=== PATIENT | male | born 1940 | race Caucasian/White ===

== ENCOUNTER 2021-02-02 17:48 | Inpatient (IN) ==
[2021-02-02] MEDS ORDERED: *HR* Metoprolol 5 MG/5 ML VIAL IVP ONE ×2 (22:38→22:46)
[2021-02-02] MEDS ORDERED: Naloxone 0.4 MG/ML INJ IVP PRN (22:42)
[2021-02-02] MEDS ORDERED: *HR* Promethazine 25 MG/ML VIAL IM PRN (22:46)
[2021-02-02] MEDS ORDERED: *HR* HYDROcodone/Acet 5/325 mg TABLET PO PRN (22:46)
[2021-02-02] MEDS ORDERED: Acetaminophen 325 MG TABLET PO PRN (22:46)
[2021-02-02] MEDS ORDERED: *HR* OxyCODONE Immed Rel 5 MG TABLET PO PRN (22:46)
[2021-02-02] MEDS ORDERED: Ondansetron 4 MG/2 ML VIAL IVP PRN (22:46)
[2021-02-02] MEDS ORDERED: *HR* Heparin 5,000 UNIT/ML VIAL IVP PRN (22:54)
[2021-02-02] MEDS ORDERED: Heparin 25,000UNIT/250ML 1/2NS 25,000 UNIT/250 ML IV.SOLN IVC SCH (23:00)
[2021-02-02] MEDS: Heparin 25,000 UNIT/250 ML 25,000 UNIT/250 ML IV.SOLN IVC SCH (23:29)
[2021-02-02] MEDS ORDERED: *HR* LORazepam 2 MG/ML VIAL IVP ONE (23:54)
[2021-02-03] MEDS ORDERED: Haloperidol Lactate 5 MG/ML VIAL IVP ONE (00:28)
[2021-02-03] MEDS ORDERED: Ipratropium/Albuterol Neb 3 ML IH PRN (01:18)
[2021-02-03 01:58] LABS: Basophils % 0.2 %; Hematocrit 35.2 % (37.5-50.1); Hemoglobin 10.3 g/dL (12.9-16.9); Immature Granulocytes % 0.5 % (0-4); Lymphocytes # 0.4 K/mcL (0.6-4.6); Lymphocytes % 3.1 %; Mean Corpuscular HGB Conc 29.3 g/dL (31.6-35.5); Mean Corpuscular Hemoglobin 30.3 pg (28.0-33.3); Mean Corpuscular Volume 103.5 fL (83.0-100.0); Mean Platelet Volume 11.5 fL (9.4-12.4); Monocytes # 0.2 K/mcL (0.0-1.3); Monocytes % 1.7 %; Neutrophils # 12.1 K/mcL (1.6-8.9); Platelet Count 226 K/mcL (140-400); Red Cell Distribution Width 15.2 % (11.5-14.5); Segmented Neutrophils % 94.5 %; White Blood Count 12.8 K/mcL (4.3-11.1)
[2021-02-03 02:03] LABS: Heparin anti-factor XA UFH 0.22 IU/mL (0.30-0.70)
[2021-02-03 02:04] LABS: INR 1.2; Prothrombin Time 13.3 Seconds (9.4-12.1)
[2021-02-03 02:16] LABS: Alanine Aminotransferase 13 Units/L (7-52); Albumin 3.3 g/dL (3.5-5.7); Albumin/Globulin Ratio 1.3 (1.1-2.2); Alkaline Phosphatase 56 Units/L (34-104); Aspartate Amino Transferase 17 Units/L (13-39); BUN/Creatinine Ratio 31 (6-26); Bilirubin,Total 0.4 mg/dL (0.3-1.0); Blood Urea Nitrogen 28 mg/dL (8-23); Calcium 8.2 mg/dL (8.6-10.3); Carbon Dioxide 29 mEq/L (23-29); Chloride 110 mEq/L (98-107); Chol/HDL Ratio 3.8 (0-4.9); Cholesterol 124 mg/dL (< 200); Globulin 2.5 g/dL (2.4-3.5); Glucose 149 mg/dL (70-105); HDL Cholesterol 33 mg/dL (40-59); LDL Cholesterol,Calculated 76 mg/dL (< 100); Magnesium 2.2 mg/dL (1.6-2.6); Osmolality,Calculated 304 (280-300); Sodium 143 mEq/L (136-145); Total Protein 5.8 g/dL (6.4-8.9); Triglycerides 73 mg/dL (< 150); eGFR For African Americans > 60 (> 60); eGFR For Non-African Americans > 60 (> 60)
[2021-02-03 02:28] LABS: VBG HCO3 31 mEq/L (21-27); VBG PCO2 89 mmHg (41-51); VBG PH 7.15 pH Units (7.32-7.42); VBG PO2 209 mmHg (25-50)
[2021-02-03] MEDS: Azithromycin 500 MG in 0.9 % Sodium Chloride 250 ML IVPB SCH (03:39)
[2021-02-03] MEDS: MethylPREDNISolone 40 MG/ML VIAL IVP SCH ×2 (08:54→16:03)
[2021-02-03] MEDS: Cefepime HCl 1,000 MG in Water for inj. (sterile) 10 ML IVP SCH ×2 (08:54→16:03)
[2021-02-03] MEDS ORDERED: Perflutren Lipid Microsphere 1.3 ML in 0.9 % Sodium Chloride 8.7 ML IVP PRN (09:53)
[2021-02-03] MEDS: *HR* Metoprolol 5 MG/5 ML VIAL IVP SCH ×2 (12:16→17:57)
[2021-02-03 16:18] LABS: ABG Base Excess 1 mEq/L (-2 to 3); ABG HCO3 31 mEq/L (21-27); ABG Oxygen Saturation 93 % (95-98); ABG PCO2 77 mmHg (35-45); ABG PH 7.21 pH Units (7.32-7.45); ABG PO2 82 mmHg (85-104); ABG TCO2 33 mEq/L (20-26); Blood Gas Modality avaps; Blood Gas VT 500 cc
[2021-02-03] MEDS: Heparin 25,000 UNIT/250 ML 25,000 UNIT/250 ML IV.SOLN IVC SCH (17:58)
[2021-02-03] MEDS: Ipratropium/Albuterol Neb 3 ML IH SCH ×2 (20:13→23:39)
[2021-02-04] MEDS: *HR* Metoprolol 5 MG/5 ML VIAL IVP SCH ×5 (00:40→23:13)
[2021-02-04] MEDS: MethylPREDNISolone 40 MG/ML VIAL IVP SCH ×4 (00:41→23:13)
[2021-02-04] MEDS: Cefepime HCl 1,000 MG in Water for inj. (sterile) 10 ML IVP SCH ×2 (00:41→09:33)
[2021-02-04] MEDS: Azithromycin 500 MG in 0.9 % Sodium Chloride 250 ML IVPB SCH (02:57)
[2021-02-04] MEDS: Ipratropium/Albuterol Neb 3 ML IH SCH ×6 (04:20→23:52)
[2021-02-04] MEDS ORDERED: Ringers Solution, Lactated 500 ML IVC ONE (05:00)
[2021-02-04] MEDS ORDERED: Haloperidol Lactate 5 MG/ML VIAL IVP ONE (05:40)
[2021-02-04 05:53] LABS: VBG HCO3 31 mEq/L (21-27); VBG PCO2 74 mmHg (41-51); VBG PH 7.23 pH Units (7.32-7.42); VBG PO2 50 mmHg (25-50)
[2021-02-04 05:54] LABS: Basophils % 0.1 %
[2021-02-04 05:56] LABS: Hemoglobin 9.9 g/dL (12.9-16.9); Immature Granulocytes % 0.7 % (0-4); Lymphocytes # 0.9 K/mcL (0.6-4.6); Lymphocytes % 6.6 %; Mean Corpuscular HGB Conc 29.1 g/dL (31.6-35.5); Mean Corpuscular Hemoglobin 29.8 pg (28.0-33.3); Mean Corpuscular Volume 102.4 fL (83.0-100.0); Mean Platelet Volume 11.5 fL (9.4-12.4); Monocytes # 0.5 K/mcL (0.0-1.3); Monocytes % 3.7 %; Neutrophils # 12.2 K/mcL (1.6-8.9); Platelet Count 232 K/mcL (140-400); Red Blood Count 3.32 M/mcL (4.19-5.50); Red Cell Distribution Width 15.1 % (11.5-14.5); Segmented Neutrophils % 88.9 %; White Blood Count 13.7 K/mcL (4.3-11.1)
[2021-02-04 07:02] LABS: Calcium 8.7 mg/dL (8.6-10.3)
[2021-02-04] MEDS ORDERED: 0.9 % Sodium Chloride 1,000 ML IVC SCH (07:45)
[2021-02-04] MEDS ORDERED: D5% in 0.45% NACL 1,000 ML IVC SCH (14:15)
[2021-02-04] MEDS ORDERED: D5% in Water 1,000 ML IVC PRN (14:41)
[2021-02-04] MEDS ORDERED: *HR* Dextrose 50 % in Water (Syg) 50 ML SYRINGE IVP PRN (14:41)
[2021-02-04] MEDS ORDERED: Dextrose Gel 15 GM/37.5 ML TUBE PO PRN ×2 (14:41)
[2021-02-04] MEDS ORDERED: *HR* OxyCODONE Immed Rel 5 MG TABLET PO PRN (14:44)
[2021-02-04] MEDS ORDERED: Insulin LISPRO 300 UNITS/3 ML VIAL SUBQ SCH (16:30)
[2021-02-04] MEDS: Cefepime HCl 2,000 MG in 0.9 % Sodium Chloride Mini Bag 100 ML IVPB SCH (16:47)
[2021-02-04] MEDS: Pantoprazole 40 MG VIAL IVP SCH (16:51)
[2021-02-04] MEDS: *HR* Heparin 5,000 UNIT/ML VIAL IVP PRN ×2 (16:55→23:21)
[2021-02-04] MEDS: Insulin LISPRO 300 UNITS/3 ML VIAL SUBQ SCH ×2 (17:19→23:13)
[2021-02-04] MEDS: Heparin 25,000 UNIT/250 ML 25,000 UNIT/250 ML IV.SOLN IVC SCH (20:56)
[2021-02-05] MEDS: Azithromycin 500 MG in 0.9 % Sodium Chloride 250 ML IVPB SCH (01:42)
[2021-02-05] MEDS: Ipratropium/Albuterol Neb 3 ML IH SCH ×6 (03:40→23:49)
[2021-02-05 06:00] LABS: Basophils % 0.1 %; Hematocrit 31.6 % (37.5-50.1); Hemoglobin 9.4 g/dL (12.9-16.9); Immature Granulocytes % 0.7 % (0-4); Lymphocytes # 0.7 K/mcL (0.6-4.6); Lymphocytes % 5.7 %; Mean Corpuscular HGB Conc 29.7 g/dL (31.6-35.5); Mean Corpuscular Hemoglobin 29.3 pg (28.0-33.3); Mean Corpuscular Volume 98.4 fL (83.0-100.0); Mean Platelet Volume 11.9 fL (9.4-12.4); Monocytes # 0.4 K/mcL (0.0-1.3); Monocytes % 3.5 %; Neutrophils # 11.1 K/mcL (1.6-8.9); Nucleated Red Blood Cells 0.2 /100 WBC (0); Platelet Count 204 K/mcL (140-400); Red Blood Count 3.21 M/mcL (4.19-5.50); White Blood Count 12.3 K/mcL (4.3-11.1)
[2021-02-05] MEDS: Insulin LISPRO 300 UNITS/3 ML VIAL SUBQ SCH ×3 (06:04→18:16)
[2021-02-05] MEDS: *HR* Metoprolol 5 MG/5 ML VIAL IVP SCH ×4 (06:05→23:23)
[2021-02-05] MEDS: Cefepime HCl 2,000 MG in 0.9 % Sodium Chloride Mini Bag 100 ML IVPB SCH ×2 (06:05→17:21)
[2021-02-05 06:52] LABS: Calcium 8.5 mg/dL (8.6-10.3); Potassium 3.8 mEq/L (3.5-5.1)
[2021-02-05] MEDS ORDERED: D5% in Water 1,000 ML IVC SCH (07:45)
[2021-02-05] MEDS: MethylPREDNISolone 40 MG/ML VIAL IVP SCH ×3 (09:24→23:24)
[2021-02-05] MEDS: Pantoprazole 40 MG VIAL IVP SCH (09:25)
[2021-02-05 10:53] LABS: Bilirubin,Urine Negative (Negative); Blood,Urine Large (Negative); Budding Yeast,Urine Few per hpf (None Seen); Clarity,Urine Turbid (Clear); Color,Urine Light-Yellow (Yellow); Glucose,Urine (UA) Normal (Normal); Granular Casts,Urine Few per lpf (None Seen); Hyaline Casts,Urine Few per lpf (None Seen); Ketones,Urine 10 mg/dL (Negative); Leukocyte Esterase,Urine Trace (Negative); Mucus,Urine Few per lpf (None-Few); Nitrite,Urine Negative (Negative); Protein,Urine 70 mg/dL (Neg-Trace); RBC,Urine 50-100 per hpf (0-3); Specific Gravity,Urine 1.022 (1.010-1.025); Transitional Epi Cells,Urine Few per hpf (None-Few); Urobilinogen,Urine Normal (Normal); WBC,Urine 15-30 per hpf (0-3)
[2021-02-05 11:05] LABS: Sodium, Urine 43.3 mEq/L
[2021-02-05] MEDS: D5% in Water 1,000 ML IVC SCH (17:16)
[2021-02-05] MEDS: Heparin 25,000 UNIT/250 ML 25,000 UNIT/250 ML IV.SOLN IVC SCH (18:02)
[2021-02-05 18:24] LABS: Calcium 8.6 mg/dL (8.6-10.3); Potassium 4.3 mEq/L (3.5-5.1)
[2021-02-06] MEDS: D5% in Water 1,000 ML IVC SCH ×2 (01:22→17:58)
[2021-02-06] MEDS: Ipratropium/Albuterol Neb 3 ML IH SCH ×5 (04:00→20:47)
[2021-02-06 05:09] LABS: Basophils % 0.1 %; Hematocrit 32.2 % (37.5-50.1); Hemoglobin 10.2 g/dL (12.9-16.9); Immature Granulocytes % 1.2 % (0-4); Lymphocytes # 0.6 K/mcL (0.6-4.6); Lymphocytes % 5.3 %; Mean Corpuscular HGB Conc 31.7 g/dL (31.6-35.5); Mean Corpuscular Hemoglobin 30.3 pg (28.0-33.3); Mean Corpuscular Volume 95.5 fL (83.0-100.0); Mean Platelet Volume 12.1 fL (9.4-12.4); Monocytes # 0.4 K/mcL (0.0-1.3); Monocytes % 3.8 %; Neutrophils # 9.9 K/mcL (1.6-8.9); Platelet Count 197 K/mcL (140-400); Red Blood Count 3.37 M/mcL (4.19-5.50); Segmented Neutrophils % 89.6 %
[2021-02-06 05:15] LABS: Calcium 8.6 mg/dL (8.6-10.3); Potassium 3.7 mEq/L (3.5-5.1)
[2021-02-06] MEDS: MethylPREDNISolone 40 MG/ML VIAL IVP SCH ×2 (09:01→16:42)
[2021-02-06] MEDS: Pantoprazole 40 MG VIAL IVP SCH (09:01)
[2021-02-06] MEDS: Insulin LISPRO 300 UNITS/3 ML VIAL SUBQ SCH ×4 (09:03→20:08)
[2021-02-06] MEDS: *HR* Metoprolol 5 MG/5 ML VIAL IVP SCH ×4 (12:26→23:23)
[2021-02-06] MEDS: BUDESONIDE IH SCH (12:27)
[2021-02-06] MEDS: FORMOTEROL IH SCH (12:27)
[2021-02-06] MEDS: GLYCOPYR IH SCH (12:27)
[2021-02-06] MEDS: Cefepime HCl 2,000 MG in 0.9 % Sodium Chloride Mini Bag 100 ML IVPB SCH ×2 (16:44→16:45)
[2021-02-06] MEDS: Heparin 25,000 UNIT/250 ML 25,000 UNIT/250 ML IV.SOLN IVC SCH (18:02)
[2021-02-06] MEDS: Azithromycin 500 MG in 0.9 % Sodium Chloride 250 ML IVPB SCH (20:08)
[2021-02-07] MEDS: Ipratropium/Albuterol Neb 3 ML IH SCH ×7 (00:33→23:51)
[2021-02-07] MEDS ORDERED: *HR* Enoxaparin 80 MG/0.8 ML SYRINGE SQ SCH ×2 (01:00→18:00)
[2021-02-07] MEDS: D5% in Water 1,000 ML IVC SCH ×3 (03:26→14:39)
[2021-02-07] MEDS: Insulin LISPRO 300 UNITS/3 ML VIAL SUBQ SCH ×4 (03:27→17:48)
[2021-02-07] MEDS: Azithromycin 500 MG in 0.9 % Sodium Chloride 250 ML IVPB SCH (03:32)
[2021-02-07] MEDS: MethylPREDNISolone 40 MG/ML VIAL IVP SCH ×2 (06:25→17:38)
[2021-02-07] MEDS: *HR* Metoprolol 5 MG/5 ML VIAL IVP SCH ×3 (06:25→17:38)
[2021-02-07] MEDS: Cefepime HCl 2,000 MG in 0.9 % Sodium Chloride Mini Bag 100 ML IVPB SCH ×2 (06:26→17:39)
[2021-02-07] MEDS: Pantoprazole 40 MG VIAL IVP SCH (08:24)
[2021-02-07] MEDS: BUDESONIDE IH SCH (08:25)
[2021-02-07] MEDS: GLYCOPYR IH SCH (08:25)
[2021-02-07] MEDS: FORMOTEROL IH SCH (08:25)
[2021-02-07] MEDS: *HR* Enoxaparin 80 MG/0.8 ML SYRINGE SQ SCH (17:37)
[2021-02-07] MEDS: Melatonin 3 MG TABLET PO PRN (21:37)
[2021-02-08] MEDS: *HR* Metoprolol 5 MG/5 ML VIAL IVP SCH ×4 (00:58→12:35)
[2021-02-08] MEDS: Azithromycin 500 MG in 0.9 % Sodium Chloride 250 ML IVPB SCH (00:58)
[2021-02-08] MEDS: Insulin LISPRO 300 UNITS/3 ML VIAL SUBQ SCH ×5 (01:00→20:40)
[2021-02-08] MEDS: D5% in Water 1,000 ML IVC SCH (03:15)
[2021-02-08] MEDS: Ipratropium/Albuterol Neb 3 ML IH SCH ×6 (03:51→23:32)
[2021-02-08 05:05] LABS: Basophils % 0.1 %; Hematocrit 30.5 % (37.5-50.1); Hemoglobin 9.5 g/dL (12.9-16.9); Immature Granulocytes % 0.9 % (0-4); Lymphocytes # 0.7 K/mcL (0.6-4.6); Lymphocytes % 4.5 %; Mean Corpuscular HGB Conc 31.1 g/dL (31.6-35.5); Mean Corpuscular Hemoglobin 29.9 pg (28.0-33.3); Mean Corpuscular Volume 95.9 fL (83.0-100.0); Mean Platelet Volume 12.4 fL (9.4-12.4); Monocytes # 0.6 K/mcL (0.0-1.3); Monocytes % 3.8 %; Neutrophils # 14.1 K/mcL (1.6-8.9); Platelet Count 161 K/mcL (140-400); Red Blood Count 3.18 M/mcL (4.19-5.50); Red Cell Distribution Width 14.6 % (11.5-14.5); Segmented Neutrophils % 90.7 %; White Blood Count 15.5 K/mcL (4.3-11.1)
[2021-02-08 05:19] LABS: BUN/Creatinine Ratio 42 (6-26); Blood Urea Nitrogen 55 mg/dL (8-23); Calcium 8.1 mg/dL (8.6-10.3); Carbon Dioxide 30 mEq/L (23-29); Chloride 106 mEq/L (98-107); Glucose 192 mg/dL (70-105); Magnesium 2.3 mg/dL (1.6-2.6); Osmolality,Calculated 308 (280-300); Potassium 3.8 mEq/L (3.5-5.1); Sodium 139 mEq/L (136-145); eGFR For African Americans > 60 (> 60); eGFR For Non-African Americans 53 (> 60)
[2021-02-08] MEDS: Cefepime HCl 2,000 MG in 0.9 % Sodium Chloride Mini Bag 100 ML IVPB SCH ×2 (06:06→17:10)
[2021-02-08] MEDS: *HR* Enoxaparin 80 MG/0.8 ML SYRINGE SQ SCH ×2 (06:07→17:09)
[2021-02-08] MEDS: MethylPREDNISolone 40 MG/ML VIAL IVP SCH (09:56)
[2021-02-08] MEDS: Pantoprazole 40 MG VIAL IVP SCH (09:57)
[2021-02-08] MEDS ORDERED: D5% in Water 1,000 ML IVC PRN (14:04)
[2021-02-08] MEDS: Melatonin 3 MG TABLET PO PRN (20:45)
[2021-02-09] MEDS: Azithromycin 500 MG in 0.9 % Sodium Chloride 250 ML IVPB SCH (02:48)
[2021-02-09] MEDS: Ipratropium/Albuterol Neb 3 ML IH SCH ×6 (03:29→23:32)
[2021-02-09] MEDS: Cefepime HCl 2,000 MG in 0.9 % Sodium Chloride Mini Bag 100 ML IVPB SCH ×2 (06:33→18:26)
[2021-02-09] MEDS: *HR* Enoxaparin 80 MG/0.8 ML SYRINGE SQ SCH ×2 (06:35→18:26)
[2021-02-09] MEDS: Insulin LISPRO 300 UNITS/3 ML VIAL SUBQ SCH ×4 (11:03→20:44)
[2021-02-09] MEDS: predniSONE 20 MG TABLET PO SCH (11:06)
[2021-02-09 14:24] LABS: Basophils % 0.2 %; Eosinophils # 0.1 K/mcL (0.0-0.6); Eosinophils % 0.4 %; Hemoglobin 9.6 g/dL (12.9-16.9); Immature Granulocytes % 0.9 % (0-4); Lymphocytes # 1.3 K/mcL (0.6-4.6); Lymphocytes % 6.8 %; Mean Corpuscular Hemoglobin 28.7 pg (28.0-33.3); Mean Corpuscular Volume 95.8 fL (83.0-100.0); Mean Platelet Volume 12.8 fL (9.4-12.4); Monocytes # 0.9 K/mcL (0.0-1.3); Monocytes % 4.9 %; Neutrophils # 15.9 K/mcL (1.6-8.9); Platelet Count 156 K/mcL (140-400); Red Blood Count 3.34 M/mcL (4.19-5.50); Red Cell Distribution Width 14.6 % (11.5-14.5); Segmented Neutrophils % 86.8 %; White Blood Count 18.3 K/mcL (4.3-11.1)
[2021-02-09 14:37] LABS: VBG HCO3 33 mEq/L (21-27); VBG PCO2 66 mmHg (41-51); VBG PH 7.31 pH Units (7.32-7.42); VBG PO2 69 mmHg (25-50)
[2021-02-09 14:51] LABS: Calcium 7.8 mg/dL (8.6-10.3); Magnesium 2.3 mg/dL (1.6-2.6); Phosphorous 2.1 mg/dL (2.7-4.5); Potassium 3.6 mEq/L (3.5-5.1)
[2021-02-10] MEDS: Ipratropium/Albuterol Neb 3 ML IH SCH ×5 (03:47→20:18)
[2021-02-10] MEDS: *HR* Enoxaparin 80 MG/0.8 ML SYRINGE SQ SCH ×2 (07:35→17:25)
[2021-02-10] MEDS: predniSONE 20 MG TABLET PO SCH (07:36)
[2021-02-10] MEDS: Cefepime HCl 2,000 MG in 0.9 % Sodium Chloride Mini Bag 100 ML IVPB SCH ×2 (07:41→17:26)
[2021-02-10] MEDS: Insulin LISPRO 300 UNITS/3 ML VIAL SUBQ SCH ×4 (07:42→21:44)
[2021-02-10 10:37] LABS: Basophils % 0.1 %; Eosinophils % 1.1 %; Hemoglobin 9.5 g/dL (12.9-16.9); Mean Corpuscular HGB Conc 30.6 g/dL (31.6-35.5); Red Cell Distribution Width 14.6 % (11.5-14.5)
[2021-02-10 10:39] LABS: Eosinophils # 0.2 K/mcL (0.0-0.6); Immature Granulocytes % 1.6 % (0-4); Immature Platelets 14.3 % (1.1-6.1); Lymphocytes # 1.6 K/mcL (0.6-4.6); Lymphocytes % 8.1 %; Mean Corpuscular Hemoglobin 29.4 pg (28.0-33.3); Monocytes # 1.1 K/mcL (0.0-1.3); Monocytes % 5.6 %; Neutrophils # 16.5 K/mcL (1.6-8.9); Platelet Count 149 K/mcL (140-400); Red Blood Count 3.23 M/mcL (4.19-5.50); Segmented Neutrophils % 83.5 %; White Blood Count 19.7 K/mcL (4.3-11.1)
[2021-02-10 10:54] LABS: Calcium 7.7 mg/dL (8.6-10.3); Magnesium 2.4 mg/dL (1.6-2.6); Potassium 3.4 mEq/L (3.5-5.1)
[2021-02-11] MEDS: Ipratropium/Albuterol Neb 3 ML IH SCH ×7 (00:11→23:29)
[2021-02-11] MEDS: D5% in Water 1,000 ML IVC SCH (04:59)
[2021-02-11] MEDS: Cefepime HCl 2,000 MG in 0.9 % Sodium Chloride Mini Bag 100 ML IVPB SCH ×2 (05:40→17:09)
[2021-02-11] MEDS: *HR* Enoxaparin 80 MG/0.8 ML SYRINGE SQ SCH ×2 (05:40→17:09)
[2021-02-11] MEDS: Insulin LISPRO 300 UNITS/3 ML VIAL SUBQ SCH ×4 (08:33→20:42)
[2021-02-11] MEDS ORDERED: predniSONE 20 MG TABLET PO SCH (09:00)
[2021-02-11] MEDS ORDERED: Warfarin perPT PO PRN (18:00)
[2021-02-11] MEDS ORDERED: *HR* Warfarin 3 MG TABLET PO ONE (18:00)
[2021-02-12] MEDS: Ipratropium/Albuterol Neb 3 ML IH SCH ×3 (03:41→11:25)
[2021-02-12] MEDS: *HR* Enoxaparin 80 MG/0.8 ML SYRINGE SQ SCH (06:28)
[2021-02-12] MEDS: Cefepime HCl 2,000 MG in 0.9 % Sodium Chloride Mini Bag 100 ML IVPB SCH (06:28)
[2021-02-12] MEDS: Insulin LISPRO 300 UNITS/3 ML VIAL SUBQ SCH ×2 (07:48→12:08)
[2021-02-12 08:08] LABS: Calcium 7.5 mg/dL (8.6-10.3); Magnesium 2.3 mg/dL (1.6-2.6); Potassium 4.4 mEq/L (3.5-5.1)
[2021-02-12] MEDS ORDERED: Fluconazole 150 MG TABLET PO SCH (09:00)
[2021-02-12] MEDS ORDERED: predniSONE 10 MG TABLET PO SCH (09:00)
[2021-02-12 10:25] LABS: INR 1.2
[2021-02-12 14:13] LABS: Basophils % 0.1 %; Mean Corpuscular Volume 97.3 fL (83.0-100.0); Monocytes % 4.3 %
[2021-02-12 14:15] LABS: Eosinophils % 0.1 %; Hematocrit 21.7 % (37.5-50.1); Hemoglobin 6.5 g/dL (12.9-16.9); Immature Granulocytes % 1.1 % (0-4); Immature Platelets 15.4 % (1.1-6.1); Lymphocytes # 0.9 K/mcL (0.6-4.6); Lymphocytes % 2.8 %; Mean Corpuscular Hemoglobin 29.1 pg (28.0-33.3); Mean Platelet Volume 13.7 fL (9.4-12.4); Monocytes # 1.4 K/mcL (0.0-1.3); Platelet Count 161 K/mcL (140-400); Red Blood Count 2.23 M/mcL (4.19-5.50); Red Cell Distribution Width 15.6 % (11.5-14.5); Segmented Neutrophils % 91.6 %
[2021-02-12 14:19] LABS: White Blood Count 32.7 K/mcL (4.3-11.1)
[2021-02-12] MEDS ORDERED: *HR* Warfarin 2.5 MG TABLET PO ONE (18:00)
== END 2021-02-12 13:45 | disposition home health service (06) | DRG 871 ==
LOC: 2NENU → SUATTDRO 22:45
PROVIDERS: ADMIT Internal Medicine; ATTEND Pharmacist